=== PATIENT | female | born 1995 | race Caucasian/White ===

== ENCOUNTER 2020-05-12 18:01 | Emergency (ER) | payer MEDICAID ==
[~2020-05-12] VITALS: Ht 162.6 cm; Wt 63.0 kg
[2020-05-12 18:07] VITALS: BP 137/87
== END 2020-05-12 19:05 | disposition left against medical advice (07) ==
LOC: ER 18:01
DX: M25.562 Pain in left knee (principal); V49.49XA Driver injured in collision with other motor vehicles in traffic accident, initial encounter; Y93.89 Activity, other specified; Y92.89 Other specified places as the place of occurrence of the external cause; Y99.8 Other external cause status
CPT/HCPCS: 99283